=== PATIENT | male | born 1970 | race Caucasian/White ===

== ENCOUNTER 2017-05-04 13:22 | Emergency (ER) | payer OTHER ==
--- NOTE | ~2017-05-04 | ER ---
PATIENT'S NAME: KRISTEN JAUREGUI [facility] AGE: 46 Y [address] ROOM: [place] [address] LOCATION: [facility] ADMIT DATE: 05/04/2017 ER/Outpatient Report DISCHARGE DATE: 05/04/2017 FAMILY PHYSICIAN: PHYSICIAN, NO ATTENDING PHYSICIAN: Guillermo Edwards Time of Arrival: 1322 hours. Time of Evaluation: 1323 hours. CHIEF COMPLAINT: Left eye injury. HISTORY OF PRESENT ILLNESS: The patient is a 46-year-old male who presents to the emergency department today with a chief complaint of left eye injury. He reports it occurred an hour and half prior to arrival. He was grinding and went a piece of metal in his eye. He reports it is currently 3/10 in severity. He did irrigate with flush, still felt like he had something in there. It is a sharp pain, worse with movement, and eye discomfort. He has not had any trouble seeing otherwise. PAST MEDICAL HISTORY: PTSD. PAST SURGICAL HISTORY: Appendectomy and tonsillectomy. SOCIAL HISTORY: The patient smokes less than a pack per day. Denies any alcohol or illicit drug use. ALLERGIES: NO KNOWN DRUG ALLERGIES. MEDICATIONS: Please see list. PRIMARY CARE DOCTOR: ANTIONETTE. REVIEW OF SYSTEMS: All systems are reviewed by myself and are negative with the exception of those discussed in HPI and past medical history. PHYSICAL EXAMINATION: PATIENT'S NAME: KRISTEN JAUREGUI [facility] AGE: 46 Y [address] ROOM: [place] [address] LOCATION: [facility] ADMIT DATE: 05/04/2017 ER/Outpatient Report DISCHARGE DATE: 05/04/2017 FAMILY PHYSICIAN: PHYSICIAN, NO ATTENDING PHYSICIAN: Guillermo Edwards VITAL SIGNS: Weight 121.3 kg. Blood pressure 134/94, pulse 96, respiratory rate 16, temperature 98.8, and oxygen saturation 95% on room air. GENERAL: The patient is a 46-year-old male, appears stated age, in mild acute discomfort secondary to pain in his eye. HEENT: Head: Normocephalic, atraumatic. Pupils are equal, round, and reactive to light. Extraocular motions are intact. Conjunctivae are injected. No obvious foreign body is noted. Visual acuity: 20/13 bilaterally; 20/15 on the left and 20/13 on the right. Nares are patent bilaterally. TMs are clear. Oropharynx is clear. NECK: Supple. There is no nuchal rigidity. CARDIOVASCULAR: Regular rate and rhythm. No murmurs, rubs, or gallops. LUNGS: Clear to auscultation bilaterally. No wheezes, rales, or rhonchi. ABDOMEN: Soft, nontender, and nondistended. No rebound, rigidity, or guarding. SKIN: Warm and dry. LABORATORY DATA AND X-RAYS: Slit-lamp exam is utilized by myself. There is no evidence of Marcin sign. There is conjunctival injection. I see no obvious foreign body. The eyelid is inverted and there is no evidence of foreign body noted in the eyelid. There is no evidence of linear abrasions. The fluorescein dye is irrigated. IMPRESSION: 1. Conjunctivitis with suspected foreign body. 2. Initial visit. EMERGENCY DEPARTMENT COURSE: The patient was brought back to the examination room. Seen and evaluated by myself. Slit-lamp exam is described as above. Proparacaine was used for anesthesia as well as fluorescein dye. Discussed results of the slit-lamp exam with the patient. I have recommended a close followup with an eye doctor in 2-3 days for re-evaluation. I have written a prescription for erythromycin ointment. The patient is agreeable, and he is without further questions at this time. DISPOSITION: The patient is discharged home in good condition. DO DECLAN RITCHIE/lizzette PATIENT'S NAME: KRISTEN JAUREGUI [facility] AGE: 46 Y [address] ROOM: [place] [address] LOCATION: [facility] ADMIT DATE: 05/04/2017 ER/Outpatient Report DISCHARGE DATE: 05/04/2017 FAMILY PHYSICIAN: PHYSICIAN, NO ATTENDING PHYSICIAN: Guillermo Edwards /[id number] d: [id number]/[id number] t: 05/05/17 1608, OUTPATIENT REPORT
== END 2017-05-04 13:45 | disposition disaster alternative care site (69) ==
LOC: GACC 13:22
DX: H10.9 Unspecified conjunctivitis (principal); F17.210 Nicotine dependence, cigarettes, uncomplicated; Z90.49 Acquired absence of other specified parts of digestive tract; Z90.89 Acquired absence of other organs